=== PATIENT | female | born 1960 | race Caucasian/White ===

== ENCOUNTER 2017-11-02 14:18 | Outpatient (CLI) | payer BC | END 2017-11-02 20:51 | disposition home or self-care (01) | LOC: SMA 14:18 | PROVIDERS: ATTEND Specialist | DX: Z12.31 Encounter for screening mammogram for malignant neoplasm of breast (principal) | CPT/HCPCS: G0202 ==

== ENCOUNTER 2018-11-06 10:00 | Outpatient (CLI) | payer BC | END 2018-11-06 20:10 | disposition home or self-care (01) | LOC: SMA 10:00 | PROVIDERS: ATTEND Specialist | DX: Z12.31 Encounter for screening mammogram for malignant neoplasm of breast (principal) | CPT/HCPCS: 77067 ==

== ENCOUNTER 2019-11-16 12:55 | Outpatient (CLI) | payer BC | END 2019-11-16 21:11 | disposition home or self-care (01) | LOC: SMA 12:55 | PROVIDERS: ATTEND Specialist | DX: Z12.31 Encounter for screening mammogram for malignant neoplasm of breast (principal) | CPT/HCPCS: 77067 ==

== ENCOUNTER 2020-11-18 13:16 | Outpatient (CLI) | payer BC | END 2020-11-18 21:04 | disposition home or self-care (01) | LOC: SMA 13:16 | PROVIDERS: ATTEND Specialist | DX: Z12.31 Encounter for screening mammogram for malignant neoplasm of breast (principal) | CPT/HCPCS: 77067 ==

== ENCOUNTER 2021-11-30 12:27 | Outpatient (CLI) | payer BC | END 2021-11-30 19:39 | disposition home or self-care (01) | LOC: SMA 12:27 → SRD 19:39 | DX: Z12.31 Encounter for screening mammogram for malignant neoplasm of breast (principal) | CPT/HCPCS: 77067 ==

== ENCOUNTER 2023-01-06 14:04 | Outpatient (CLI) | payer BC | END 2023-01-06 19:40 | disposition home or self-care (01) | LOC: SMA 14:04 | PROVIDERS: ATTEND Specialist | DX: Z12.31 Encounter for screening mammogram for malignant neoplasm of breast (principal); N64.89 Other specified disorders of breast | CPT/HCPCS: 77067 ==

== ENCOUNTER 2024-01-12 11:00 | Outpatient (CLI) | payer BC | END 2024-01-12 17:00 | disposition home or self-care (01) | LOC: SMA 11:00 | PROVIDERS: ATTEND Specialist | DX: Z12.31 Encounter for screening mammogram for malignant neoplasm of breast (principal); R92.333 Mammographic heterogeneous density, bilateral breasts; N63.20 Unspecified lump in the left breast, unspecified quadrant; N63.10 Unspecified lump in the right breast, unspecified quadrant; R92.1 Mammographic calcification found on diagnostic imaging of breast | CPT/HCPCS: 77067 ==